=== PATIENT | female | born 1945 | race Caucasian/White ===

== ENCOUNTER 2019-01-15 12:16 | Emergency (ER) | payer MEDICARE ==
[~2019-01-15] VITALS: Ht 149.9 cm; Wt 91.6 kg
[~2019-01-15 12:16] MED LIST: ACETAMINOPHEN500 MG PO; ASPIRIN EC81 MG PO; BENICAR HCT 401 EAC1 PO; BENICAR40 MG PO; CLONIDINE HCL0.1 MG PO; GREEN COFFEE B PO; GREEN COFFEE B400 MG PO; HYDROCODON-ACE1 EA10 PO; NORCO 5-325 TA1 EACH PO; ONE DAILY WOME1 EAC2 PO; SIMVASTATIN20 MG PO; WOMEN'S 50+ DA1 EACH PO
[2019-01-15] MEDS ORDERED: AMOXICILLIN500 MG PO (13:00)
[2019-01-15] MEDS ORDERED: PERCOCET 5-3251 EACH PO (13:01)
[2019-01-15] MEDS ORDERED: NEURONTIN300 MG PO (13:01)
[2019-01-15] MEDS ORDERED: CITALOPRAM HBR20 MG PO (13:02)
[2019-01-15] MEDS ORDERED: ROBAXIN-750750 MG PO (13:02)
[2019-01-15] MEDS ORDERED: LOSARTAN-HCTZ1 EAC1 PO (13:03)
[2019-01-15] MEDS ORDERED: ZOFRAN4 MG PO (14:10)
== END 2019-01-15 14:16 | disposition home or self-care (01) ==
LOC: ED 12:16
DX: T40.2X5A Adverse effect of other opioids, initial encounter (principal); R11.2 Nausea with vomiting, unspecified; I10 Essential (primary) hypertension; F32.9 Major depressive disorder, single episode, unspecified; Z85.038 Personal history of other malignant neoplasm of large intestine; Z90.49 Acquired absence of other specified parts of digestive tract; Z90.710 Acquired absence of both cervix and uterus; Z88.8 Allergy status to other drugs, medicaments and biological substances; Z79.899 Other long term (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 therapy
CPT/HCPCS: 99283

== ENCOUNTER 2021-08-22 11:29 | Emergency (ER) | payer OTHER, MEDICARE ==
[~2021-08-22] VITALS: Ht 149.9 cm; Wt 75.5 kg
[~2021-08-22 11:29] MED LIST changes: +AMOXICILLIN500 MG PO; +CITALOPRAM HBR20 MG PO; +LOSARTAN-HCTZ1 EAC1 PO; +NEURONTIN300 MG PO; +OMEPRAZOLE20 MG PO; +ONDANSETRON ODT8 MG PO; +PERCOCET 5-3251 EACH PO; +PROTONIX40 MG PO; +ROBAXIN-750750 MG PO; +ZOFRAN4 MG PO
[2021-08-22] MEDS ORDERED: METFORMIN HCL500 M1 PO (11:52)
[2021-08-22] MEDS ORDERED: HYDROCODON-ACE1 EA10 PO (14:11)
== END 2021-08-22 14:40 | disposition home or self-care (01) ==
LOC: ED 11:29
DX: S16.1XXA Strain of muscle, fascia and tendon at neck level, initial encounter (principal); R07.89 Other chest pain; M79.602 Pain in left arm; I10 Essential (primary) hypertension; E78.00 Pure hypercholesterolemia, unspecified; K21.9 Gastro-esophageal reflux disease without esophagitis; Z85.038 Personal history of other malignant neoplasm of large intestine; Z88.8 Allergy status to other drugs, medicaments and biological substances; Z79.899 Other long term (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 therapy; Z79.84 Long term (current) use of oral hypoglycemic drugs; W01.0XXA Fall on same level from slipping, tripping and stumbling without subsequent striking against object, initial encounter
CPT/HCPCS: 36415; 70450; 71045; 71260; 72125; 73060; 74177; 80053; 83690; 85025; 99284-25; Q9967

== ENCOUNTER 2024-03-19 12:28 | Emergency (ER) | payer MEDICARE, OTHER ==
[~2024-03-19] VITALS: Ht 149.9 cm; Wt 74.0 kg
[~2024-03-19 12:28] MED LIST changes: +ADVIL100 M1 PO; +CEFDINIR300 MG PO; +DILTIAZEM HCL120 MG PO; +ELIQUIS5 MG PO; +METFORMIN HCL500 M1 PO; +METHOCARBAMOL750 MG PO; +PRILOSEC OTC20 MG PO; -ROBAXIN-750750 MG PO; +TIZANIDINE HCL2 M1 PO; +VITAMIN D350 MC3 PO
[2024-03-19 14:29] VITALS: BP 146/86
== END 2024-03-19 14:29 | disposition home or self-care (01) ==
LOC: ED 12:28
DX: T63.441A Toxic effect of venom of bees, accidental (unintentional), initial encounter (principal); R22.0 Localized swelling, mass and lump, head; I10 Essential (primary) hypertension; Z88.8 Allergy status to other drugs, medicaments and biological substances; Z91.018 Allergy to other foods; Z79.01 Long term (current) use of anticoagulants; Z79.899 Other long term (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 therapy; Z79.84 Long term (current) use of oral hypoglycemic drugs
CPT/HCPCS: 99282

== ENCOUNTER 2024-05-14 02:05 | Emergency (ER) | payer MEDICARE, OTHER ==
[~2024-05-14] VITALS: Ht 149.9 cm; Wt 81.4 kg
[2024-05-14 02:27] LABS: BASOPHILS 1.2 % (0-2); EOSINOPHILS 2.2 % (0-6); HEMATOCRIT 40.3 % (35.0-50.0); HEMOGLOBIN 13.3 g/dL (12.0-18.0); LYMPHOCYTES 25.7 % (24-44); MCH 29.7 (27-36); MCHC 33.1 g/dl (30-36); MCV 89.8 fl (81-99); MONOCYTES 9.7 % (0-12); NEUTROPHILS 61.2 % (39-80); PLATELET COUNT 282 K/uL (140-440); RBC 4.48 M/ul (4.3-5.7); RDW 14.9 (10.5-15.0)
[2024-05-14] MEDS ORDERED: dilTIAZem HCL 25 MG/5 ML VIAL IV ONE (02:30)
[2024-05-14] MEDS ORDERED: SODIUM CHLORIDE 0.9% 1,000 ML IV ONE (02:30)
[2024-05-14 02:36] LABS: INR 1.03 (0.80-1.30); PROTIME 13.1 Sec (11.2-14.2)
[2024-05-14 02:48] LABS: ALBUMIN 4.3 g/dL (3.4-5.0); ALBUMIN/GLOBULIN RATIO 1.1 (1.1-2.4); ANION GAP 18.9 (7-21); BILIRUBIN, TOTAL 0.8 ng/dL (0.2-1.0); BUN/CREATININE RATIO 21.17 (6.0-28.6); CALCIUM 10.7 mg/dL (8.5-10.1); CREATININE, SERUM 0.85 mg/dL (0.55-1.02); MAGNESIUM 1.9 mg/dL (1.8-2.4); POTASSIUM 3.9 mmol/L (3.5-5.1); PROTEIN, TOTAL 8.2 g/dL (6.4-8.2)
[2024-05-14] MEDS ORDERED: DILTIAZEM ER180 M1 PO (04:44)
[2024-05-14 05:01] VITALS: BP 122/61
--- NOTE | 2024-05-14 14:41 | EKG ---
[facility] [address] [facility] [place] [address] Signed Atrial fibrillation Left axis deviation Nonspecific ST and T wave abnormality Abnormal ECG When compared with ECG of 26-JAN-2024 16:58, Atrial fibrillation has replaced Sinus rhythm Confirmed by Balbir Stevens MD ([id number]) on 05/14/2024 2:41:13 PM Electronically Signed By: BALBIR STEVENS DO 05/14/24 1441 PATIENT NAME: HUERTASNADER Electrocardiogram DATE OF : 45 PHYSICIAN: BALBIR STEVENS DO REPORT #: [id number] REPORT IS CONFIDENTIAL AND NOT TO BE RELEASED WITHOUT AUTHORIZATION
== END 2024-05-14 05:00 | disposition home or self-care (01) ==
LOC: ED 02:05
PROVIDERS: Family Medicine
DX: I48.91 Unspecified atrial fibrillation (principal); I10 Essential (primary) hypertension; K21.9 Gastro-esophageal reflux disease without esophagitis; E78.00 Pure hypercholesterolemia, unspecified; Z79.01 Long term (current) use of anticoagulants; Z79.899 Other long term (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 therapy; Z88.8 Allergy status to other drugs, medicaments and biological substances; Z91.018 Allergy to other foods
CPT/HCPCS: 36415; 71045; 80053; 83735; 83880; 84484; 85025; 85610; 93005; 93010; 96374; 99285-25; J7030

== ENCOUNTER 2024-11-10 03:03 | Emergency (ER) | payer MEDICARE, OTHER ==
[~2024-11-10] VITALS: Ht 149.9 cm; Wt 81.0 kg
[~2024-11-10 03:03] MED LIST changes: +DILTIAZEM ER180 M1 PO
[2024-11-10] MEDS ORDERED: LOSARTAN POTAS100 MG PO (03:17)
[2024-11-10] MEDS ORDERED: MAGNESIUM250 M2 PO (03:17)
[2024-11-10] MEDS ORDERED: HYDROCHLOROTH12.5 MG PO (03:17)
[2024-11-10] MEDS ORDERED: VITAMIN D3250 MC1 (03:18)
[2024-11-10 03:26] LABS: HEMATOCRIT 36.6 % (35.0-50.0); HEMOGLOBIN 12.7 g/dL (12.0-18.0); MCH 30.4 (27-36); MCHC 34.7 g/dl (30-36); MCV 87.6 fl (81-99); PLATELET COUNT 310 K/uL (140-440); RBC 4.18 M/ul (4.3-5.7); RDW 16.2 (10.5-15.0)
[2024-11-10 03:39] LABS: BASOPHILS, MANUAL DIFF 2; EOSINOPHILS, MANUAL DIFF 1; LYMPHOCYTES, MANUAL DIFF 33; MONOCYTES, MANUAL DIFF 8; NEUTROPHILS, MANUAL DIFF 56
[2024-11-10 03:50] LABS: ALBUMIN 4.2 g/dL (3.4-5.0); ALBUMIN/GLOBULIN RATIO 1.27 (1.1-2.4); ANION GAP 13.7 (7-21); BILIRUBIN, TOTAL 0.8 mg/dL (0.2-1.0); BUN/CREATININE RATIO 18.68 (6.0-28.6); CALCIUM 10.4 mg/dL (8.5-10.1); CREATININE, SERUM 0.91 mg/dL (0.55-1.02); MAGNESIUM 1.8 mg/dL (1.8-2.4); POTASSIUM 3.7 mmol/L (3.5-5.1); PROTEIN, TOTAL 7.5 g/dL (6.4-8.2); TSH, 3RD GENERATION 1.949 uIU/mL (0.358-3.740)
[2024-11-10 04:03] LABS: BILIRUBIN, URINE NEGATIVE (negative); BLOOD/HGB, URINE NEGATIVE (Negative); KETONE, URINE NEGATIVE (Negative); LEUK ESTERASE, URINE NEGATIVE (negative); NITRITE, URINE NEGATIVE (negative); PH, URINE 7.5 (5-7)
[2024-11-10 04:17] LABS: AMPHETAMINES, URINE NEGATIVE (NEGATIVE); BARBITURATES, URINE NEGATIVE (NEGATIVE); BENZODIAZEPINE, URINE NEGATIVE (NEGATIVE); BUPRENORPHINE, URINE NEGATIVE (NEGATIVE); CANNABINOID, URINE NEGATIVE (NEGATIVE); COCAINE, URINE NEGATIVE (NEGATIVE); ECSTASY, URINE NEGATIVE (NEGATIVE); FENTANYL, URINE NEGATIVE (NEGATIVE); METHADONE, URINE NEGATIVE (NEGATIVE); OPIATES, URINE NEGATIVE (NEGATIVE); OXYCODONE, URINE NEGATIVE (NEGATIVE); PHENCYCLIDINE, URINE NEGATIVE (NEGATIVE)
[2024-11-10] MEDS ORDERED: ACETAMINOPHEN 500 MG TAB PO ONE (04:45)
[2024-11-10 05:05] VITALS: BP 148/72
--- NOTE | 2024-11-10 20:11 | EKG ---
[facility] [address] [facility] [place] [address] Signed Normal sinus rhythm Pulmonary disease pattern Left anterior fascicular block Abnormal ECG When compared with ECG of 14-MAY-2024 02:13, Sinus rhythm has replaced Atrial fibrillation Confirmed by Josh Stevens DO ([id number]) on 11/10/2024 8:11:38 PM Electronically Signed By: JOSH STEVENS DO 11/10/242010 PATIENT NAME: HUERTASNADERNYS Electrocardiogram DATE OF : 45 PHYSICIAN: JOSH STEVENS DO REPORT #: [id number] REPORT IS CONFIDENTIAL AND NOT TO BE RELEASED WITHOUT AUTHORIZATION
[2024-11-11 08:54] LABS: THYROXINE FREE 1.4 ng/dL (0.9-1.7)
== END 2024-11-10 05:00 | disposition home or self-care (01) ==
LOC: ED 03:03
PROVIDERS: Internal Medicine
DX: I48.0 Paroxysmal atrial fibrillation (principal); S00.83XA Contusion of other part of head, initial encounter; I44.4 Left anterior fascicular block; M19.011 Primary osteoarthritis, right shoulder; I10 Essential (primary) hypertension; W19.XXXA Unspecified fall, initial encounter; W22.8XXA Striking against or struck by other objects, initial encounter; Z88.8 Allergy status to other drugs, medicaments and biological substances; Z91.011 Allergy to milk products; Z79.01 Long term (current) use of anticoagulants; Z79.899 Other long term (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 therapy; Z79.84 Long term (current) use of oral hypoglycemic drugs
CPT/HCPCS: 36415; 70450; 71045; 73060; 80053; 80307; 81003; 83735; 83880; 84439; 84443; 84484; 85025; 93005; 93010; 99285-25; A9270

== ENCOUNTER 2024-12-04 17:29 | Emergency (ER) | payer MEDICARE, OTHER ==
[~2024-12-04] VITALS: Ht 149.9 cm; Wt 80.0 kg
[~2024-12-04 17:29] MED LIST changes: +HYDROCHLOROTH12.5 MG PO; +LOSARTAN POTAS100 MG PO; +MAGNESIUM250 M2 PO; +VITAMIN D3250 MC1
--- OUTSIDE RECORDS SUMMARY | 2024-12-04 17:37 | XMS ---
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 - 2 Visits in 30 Days CARE PROVIDERS SAMEERA PEREZ Family [facility] 02/11/2019-Current PHONE: Unknown -, [facility] Dentist: Movie C[employer] [facility] PHONE: [phone] -[place]- Dentist: Movie [employer]ritic [facility] PHONE: [phone] April [facility] PHONE: [phone] Teddy has no Care Guidelines for this patient. Liam VISIT COUNT (12 MO.) 6 [facility] [place] TOTAL 6 NOTE: Visits indicate total known visits. 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 - FPC (current) use of oral hypoglycemic drugs - Other longterm (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 therapy - Palpitations - Paroxysmal atrial fibrillation - Primary osteoarthritis, right shoulder - Striking against or struck by other objects, initial encounter - Unspecified fall, initial encounter 05/14/2024 02:05 [facility] [place] TYPE: Emergency COMPLAINT: - POSS AFIB DIAGNOSES: - Allergy status to other drugs, medicaments and biological substances - Allergy to other foods - Essential (primary) hypertension - Gastro-esophageal reflux disease without esophagitis - FPC (current) use of anticoagulants - Other 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 (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 therapy - Palpitations - Pure hypercholesterolemia, unspecified - Unspecified atrial fibrillation 03/19/2024 12:29 [facility] [place] TYPE: Emergency COMPLAINT: - BEE STING DIAGNOSES: - Allergy status to other drugs, medicaments and biological substances - Allergy to other foods - Essential (primary) hypertension - Localized swelling, mass and lump, head - FPC (current) use of anticoagulants - 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 - Other 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 (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 therapy - Toxic effect of venom of bees, accidental (unintentional), initial encounter 01/26/2024 16:49 [facility] [place] TYPE: Emergency COMPLAINT: - HEART RATE ISSUE DIAGNOSES: - Allergy status to other drugs, medicaments and biological substances - Allergy to other foods - Essential (primary) hypertension - Gastro-esophageal reflux disease without esophagitis - Hypomagnesemia - Other chest pain - Other longterm (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 therapy - Pure hypercholesterolemia, unspecified 12/05/2023 14:47 [facility] [place] TYPE: Emergency COMPLAINT: - VOMTING, UPPER ABD PAIN INPATIENT VISIT TRACKING (12 MO.) 12/05/2023 22:[address] 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
[2024-12-04] MEDS ORDERED: HYDROCODONE/ACETA 5/325 TAB PO ONE (20:30)
[2024-12-04] MEDS ORDERED: HYDROCODON-ACE1 EA10 PO (21:22)
[2024-12-04] MEDS ORDERED: HYDROCODONE BIT/ACETAMINOPHEN 5/325 MG 1 TAB HOME.PACK PO ONE (21:30)
[2024-12-04 21:51] VITALS: BP 150/86
== END 2024-12-04 21:45 | disposition home or self-care (01) ==
LOC: ED 17:29
DX: S29.011A Strain of muscle and tendon of front wall of thorax, initial encounter (principal); I10 Essential (primary) hypertension; K21.9 Gastro-esophageal reflux disease without esophagitis; I48.91 Unspecified atrial fibrillation; Z79.899 Other long term (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 therapy; Z79.01 Long term (current) use of anticoagulants; Z88.8 Allergy status to other drugs, medicaments and biological substances; X58.XXXA Exposure to other specified factors, initial encounter
CPT/HCPCS: 71101; 99283; A9270

== ENCOUNTER 2025-01-06 10:13 | Emergency (ER) | payer MEDICARE, OTHER ==
[~2025-01-06] VITALS: Ht 149.9 cm; Wt 80.0 kg
[2025-01-06] MEDS ORDERED: DIPHTH,PERTUSS(ACELL),TET VAC 0.5 ML SYRINGE IM ONE (11:15)
[2025-01-06 11:53] VITALS: BP 118/74
== END 2025-01-06 11:55 | disposition home or self-care (01) ==
LOC: ED 10:13
DX: S91.012A Laceration without foreign body, left ankle, initial encounter (principal); I10 Essential (primary) hypertension; E78.00 Pure hypercholesterolemia, unspecified; K21.9 Gastro-esophageal reflux disease without esophagitis; W22.8XXA Striking against or struck by other objects, initial encounter; Z79.84 Long term (current) use of oral hypoglycemic drugs; Z79.899 Other long term (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 therapy; Z91.018 Allergy to other foods; Z88.8 Allergy status to other drugs, medicaments and biological substances
CPT/HCPCS: 12001; 73610; 90471; 90715; 99283-25